=== PATIENT | male | born 2005 | race African-American/Black ===

== ENCOUNTER 2024-04-02 13:08 | Emergency (ER) | payer SELFPAY ==
[2024-04-02 14:47] LABS: SARS-CoV-2 E Target Negative; SARS-CoV-2 N2 Target Negative; SARS-CoV-2 NAA Rapid Test Not Detected (NotDetected); SARS-CoV-2 RdRP gene Negative
== END 2024-04-02 14:20 | disposition home or self-care (01) ==
LOC: CSHERS 13:08
DX: R51.9 Headache, unspecified (principal); I10 Essential (primary) hypertension
CPT/HCPCS: 99284; U0002